=== PATIENT | female | born 1980 | race Asian ===

== ENCOUNTER 2017-10-05 15:06 | Outpatient (CLI) | payer OTHER, MEDICAID ==
[~2017-10-05] VITALS: Ht 157.5 cm; Wt 91.8 kg
[2017-10-05 15:29] VITALS: BP 114/82
[2017-10-05] MEDS ORDERED: FOLI-17 PO (16:46)
== END 2017-10-05 16:57 | disposition home or self-care (01) ==
LOC: LDOP 15:06
PROVIDERS: ATTEND Obstetrics & Gynecology Maternal & Fetal Medicine
DX: O09.523 Supervision of elderly multigravida, third trimester (principal); O36.8130 Decreased fetal movements, third trimester, not applicable or unspecified; O99.283 Endocrine, nutritional and metabolic diseases complicating pregnancy, third trimester; E07.9 Disorder of thyroid, unspecified; Z3A.29 29 weeks gestation of pregnancy
CPT/HCPCS: 59025; 99211; G0463

== ENCOUNTER 2017-10-29 13:45 | Outpatient (CLI) | payer OTHER, MEDICAID ==
[~2017-10-29 13:45] MED LIST: FOLI-17 PO
[2017-10-29 14:18] LABS: MICROSCOPIC INDICATED
[2017-10-29 14:26] VITALS: BP 115/75
== END 2017-10-29 16:24 | disposition home or self-care (01) ==
LOC: LDOP 13:45
PROVIDERS: ATTEND Obstetrics & Gynecology Maternal & Fetal Medicine
DX: O09.523 Supervision of elderly multigravida, third trimester (principal); O26.893 Other specified pregnancy related conditions, third trimester; R10.9 Unspecified abdominal pain; Z3A.33 33 weeks gestation of pregnancy
CPT/HCPCS: 36415; 59025; 81001; 82731; 87086; 99211; G0463

== ENCOUNTER 2017-11-14 13:38 | Outpatient (CLI) | payer OTHER, MEDICAID ==
[~2017-11-14] VITALS: Ht 157.5 cm; Wt 99.1 kg
[2017-11-14 14:52] VITALS: BP 117/81
[2017-11-14 15:02] LABS: AMNISURE NEGATIVE (NEGATIVE)
[2017-11-14] MEDS ORDERED: LORA-702 PO (15:08)
== END 2017-11-14 16:08 | disposition home or self-care (01) ==
LOC: LDOP 13:38
PROVIDERS: ATTEND Obstetrics & Gynecology Maternal & Fetal Medicine
DX: O42.92 Full-term premature rupture of membranes, unspecified as to length of time between rupture and onset of labor (principal); Z3A.36 36 weeks gestation of pregnancy
CPT/HCPCS: 59025; 84112; 99201; 99211; G0463

== ENCOUNTER 2017-12-11 17:16 | Inpatient (IN) | payer OTHER, MEDICAID ==
[~2017-12-11] VITALS: Ht 157.5 cm; Wt 96.8 kg
[~2017-12-11 17:16] MED LIST changes: +LORA-702 PO
[2017-12-12] MEDS ORDERED: OXYTOCIN 30U/ 0.9% NaCL 500ML 500 ML IV SCH (09:54)
[2017-12-12] MEDS ORDERED: LACTATED RINGERS 1,000 ML IV SCH ×3 (09:54→13:00)
[2017-12-12] MEDS ORDERED: OXYTOCIN 30U/ 0.9% NaCL 500ML 500 ML ONE (09:55)
[2017-12-12] MEDS ORDERED: NEWBORN KIT ONE (09:55)
[2017-12-12] MEDS ORDERED: LACTATED RINGERS 1,000 ML IVBOLUS ONE (10:00)
[2017-12-12 10:30] VITALS: BP 122/83
[2017-12-12 10:32] LABS: BASOPHILS # (AUTO) 0.06 x10^3/uL (0-0.1); BASOPHILS % (AUTO) 1 % (0-1); EOSINOPHILS # (AUTO) 0.11 x10^3/uL (0-0.4); EOSINOPHILS % (AUTO) 1 % (1-7); LYMPHOCYTES # (AUTO) 2.63 x10^3/uL (1-3.4); LYMPHOCYTES % (AUTO) 32 % (22-44); MD NO; MEAN CORPUSCULAR HEMOGLOBIN 27.8 pg (27.0-34.8); MEAN CORPUSCULAR HGB CONC 33.2 g/dL (32.4-35.8); MEAN CORPUSCULAR VOLUME 83.6 fL (80-100); MEAN PLATELET VOLUME 8.4 fL (7.4-10.4); MONOCYTES # (AUTO) 0.52 x10^3/uL (0.2-0.8); MONOCYTES % (AUTO) 6 % (2-9); NEUTROPHILS # (AUTO) 4.88 x10^3/uL (1.8-6.8); NEUTROPHILS % (AUTO) 60 % (42-75); PLATELET COUNT 283 x10^3/uL (130-400); RED BLOOD COUNT 4.57 x10^6/uL (3.82-5.3); RED CELL DISTRIBUTION WIDTH 14.4 % (9.6-15.2)
[2017-12-12] MEDS ORDERED: METOCLOPRAMIDE 5 MG/ML, 2ML ONE (12:11)
[2017-12-12] MEDS ORDERED: LIDOCAINE 1%, 20ML ONE (12:11)
[2017-12-12] MEDS ORDERED: EPHEDRINE 50 MG/ML, 1ML ONE (12:11)
[2017-12-12] MEDS ORDERED: OXYTOCIN 10 UNITS/ML, 1ML ONE (12:11)
[2017-12-12] MEDS ORDERED: CEFAZOLIN 1,000 MG ONE (12:11)
[2017-12-12] MEDS ORDERED: SODIUM CITRATE/CITRIC ACID 30 ML UDC ONE (12:11)
[2017-12-12] MEDS: OXYTOCIN 30U/ 0.9% NaCL 500ML 500 ML IV SCH ×3 (12:17→22:17)
[2017-12-12] MEDS ORDERED: OXYcodone 5 MG/5 ML ORAL.SOL UDC ONE (14:25)
[2017-12-12] MEDS ORDERED: OXYcodone 5 MG/5 ML ORAL.SOL UDC PO PRN (14:30)
[2017-12-12] MEDS: LACTATED RINGERS 1,000 ML IV SCH ×5 (14:30→23:40)
[2017-12-12 14:57] VITALS: BP 125/84
[2017-12-12] MEDS ORDERED: SIMETHICONE 80 MG CHEW TAB PO PRN (16:00)
[2017-12-12] MEDS ORDERED: ACETAMINOPHEN 325 MG TABLET PO PRN (16:00)
[2017-12-12] MEDS ORDERED: morphine SULFATE 10 MG/ML, 1ML IVPush PRN ×2 (16:00)
[2017-12-12] MEDS ORDERED: METHYLERGONOVINE 0.2 MG/ML IM PRN (16:00)
[2017-12-12] MEDS ORDERED: MISOPROSTOL 200 MCG TABLET PR PRN (16:00)
[2017-12-12] MEDS ORDERED: OXYcodone/APAP 5/325MG TABLET PO PRN (16:00)
[2017-12-12] MEDS ORDERED: ONDANSETRON 2MG/ML, 2ML IV PRN (16:00)
[2017-12-12] MEDS: OXYcodone/APAP 5/325MG TABLET PO PRN (18:00)
[2017-12-12 19:45] VITALS: BP 105/68
[2017-12-12] MEDS: KETOROLAC 30 MG/1 ML IV PRN (19:51)
[2017-12-12 21:13] LABS: BASOPHILS # (AUTO) 0.05 x10^3/uL (0-0.1); BASOPHILS % (AUTO) 0 % (0-1); EOSINOPHILS # (AUTO) 0.03 x10^3/uL (0-0.4); EOSINOPHILS % (AUTO) 0 % (1-7); LYMPHOCYTES # (AUTO) 2.66 x10^3/uL (1-3.4); LYMPHOCYTES % (AUTO) 18 % (22-44); MD NO; MEAN CORPUSCULAR HEMOGLOBIN 28.4 pg (27.0-34.8); MEAN CORPUSCULAR HGB CONC 33.6 g/dL (32.4-35.8); MEAN CORPUSCULAR VOLUME 84.5 fL (80-100); MEAN PLATELET VOLUME 8.1 fL (7.4-10.4); MONOCYTES # (AUTO) 0.66 x10^3/uL (0.2-0.8); MONOCYTES % (AUTO) 4 % (2-9); NEUTROPHILS % (AUTO) 78 % (42-75); PLATELET COUNT 239 x10^3/uL (130-400); RED BLOOD COUNT 4.02 x10^6/uL (3.82-5.3); RED CELL DISTRIBUTION WIDTH 14.3 % (9.6-15.2)
[2017-12-12 23:30] VITALS: BP 104/68
[2017-12-13] MEDS: KETOROLAC 30 MG/1 ML IV PRN ×2 (01:30→07:48)
[2017-12-13] MEDS: OXYTOCIN 30U/ 0.9% NaCL 500ML 500 ML IV SCH ×4 (01:40→18:17)
[2017-12-13] MEDS: LACTATED RINGERS 1,000 ML IV SCH ×6 (01:40→18:17)
[2017-12-13 03:08] VITALS: BP 115/67
[2017-12-13] MEDS: OXYcodone/APAP 5/325MG TABLET PO PRN ×4 (03:17→22:06)
[2017-12-13] MEDS: PRENATAL VIT/IRON/FA 1 EACH TABLET PO SCH ×2 (07:48→07:58)
[2017-12-13 07:50] VITALS: BP 104/67
[2017-12-13] MEDS: IBUPROFEN 600 MG TABLET PO PRN (16:55)
[2017-12-13 21:00] VITALS: BP 104/66
[2017-12-13] MEDS: DOCUSATE 100 MG CAPSULE PO PRN (22:06)
[2017-12-14] MEDS: OXYcodone/APAP 5/325MG TABLET PO PRN ×4 (03:31→19:37)
[2017-12-14] MEDS: DOCUSATE 100 MG CAPSULE PO PRN ×2 (07:27→19:38)
[2017-12-14 08:15] VITALS: BP 111/72
[2017-12-14] MEDS: PRENATAL VIT/IRON/FA 1 EACH TABLET PO SCH ×2 (09:00)
[2017-12-14] MEDS: IBUPROFEN 600 MG TABLET PO PRN ×2 (12:41→19:38)
[2017-12-14] MEDS ORDERED: DIPH,PERTUSS(ACELL),TET VAC/PF NC IM-VACC ONE (16:00)
[2017-12-14 20:00] VITALS: BP 118/77
[2017-12-15] MEDS: OXYcodone/APAP 5/325MG TABLET PO PRN ×3 (00:22→14:16)
[2017-12-15] MEDS: IBUPROFEN 600 MG TABLET PO PRN ×2 (07:08→14:16)
[2017-12-15] MEDS: DOCUSATE 100 MG CAPSULE PO PRN (07:08)
[2017-12-15 07:40] VITALS: BP 116/80
[2017-12-15] MEDS: PRENATAL VIT/IRON/FA 1 EACH TABLET PO SCH ×2 (07:42→09:00)
[2017-12-15] MEDS ORDERED: OXYC-302 PO (08:06)
[2017-12-15] MEDS ORDERED: IBUP-1222 PO (08:07)
== END 2017-12-15 14:20 | disposition home or self-care (01) | DRG 765 ==
LOC: LDIP 12-12 09:52 → 2NW 12-12 14:47
PROVIDERS: ADMIT Obstetrics & Gynecology Maternal & Fetal Medicine; ATTEND Obstetrics & Gynecology Maternal & Fetal Medicine
PROC: 10D00Z1 Extraction of Products of Conception, Low, Open Approach (ICD-10-PCS; principal; 2017-12-12)
DX: O34.211 Maternal care for low transverse scar from previous cesarean delivery (principal); O99.354 Diseases of the nervous system complicating childbirth; O99.52 Diseases of the respiratory system complicating childbirth; O99.344 Other mental disorders complicating childbirth; Z37.0 Single live birth; J45.909 Unspecified asthma, uncomplicated; G43.909 Migraine, unspecified, not intractable, without status migrainosus; F32.9 Major depressive disorder, single episode, unspecified; Z3A.40 40 weeks gestation of pregnancy
CPT/HCPCS: 36415; 59025; 85025; 86850; 86900; 90715; 99201; J0690; J1885; J3490; G0463; J2590; J2765; J7120